=== PATIENT | female | born 1955 | race Caucasian/White ===

== ENCOUNTER 2017-11-02 09:33 | Emergency (ER) | payer OTHER ==
[~2017-11-02] VITALS: Ht 162.6 cm; Wt 68.0 kg
[2017-11-02 10:04] VITALS: BP 143/88
== END 2017-11-02 10:45 | disposition home or self-care (01) ==
LOC: ER 09:35
DX: M75.31 Calcific tendinitis of right shoulder (principal); M25.511 Pain in right shoulder; I10 Essential (primary) hypertension; E78.5 Hyperlipidemia, unspecified; E11.9 Type 2 diabetes mellitus without complications; Z90.49 Acquired absence of other specified parts of digestive tract
CPT/HCPCS: 73030-TC; A4606; Z7610